=== PATIENT | male | born 1950 | race Caucasian/White ===

== ENCOUNTER 2018-12-09 23:25 | Emergency (ER) | payer MEDICARE ==
--- NOTE | 2018-12-09 23:36 | ED ---
General Adult HPI - General Stated complaint: Cardiac Arrest Time Seen by Provider: 12/09/18 23:30 - History of Present Illness Initial comments: Dictation was produced using [employer] dictation software. please excuse any grammatical, word or spelling errors. Chief Complaint: 67-year-old male presents with cardiac arrest. History of Present Illness: [age]old male brought in by EMS for cardiac arrest. According to EMS approximately 4045 minutes prior to arrival patient had collapsed. CPR was started by friends/family. EMS was called patient to call for patient's care. The were performing CPR for 40 minutes. Patient was identified to be in V. fib arrest. Patient was shocked 7 times. He is given multiple medications including several rounds of epinephrine, amiodarone and sodium bicarbonate. At no point during resuscitation performed by EMS did patient have any return of spontaneous circulation. EMS reports that patient does have cardiac history. She had Flakito tube placed for airway management. He requested report that patient became cyanotic throughout the CPR process. Unable to obtain secondary to medical status PHYSICAL EXAM: General Impression: Abdominal cyanotic, easy to bag, unresponsive HEENT: Normocephalic atraumatic, fixed dilated pupils Chest: Bilateral breath sounds with bagging Abdomen: non-distended Musculoskeletal: no peripheral edema Skin: Cyanotic ED course: 67-year-old male presents after cardiac arrest. Patient care was taken over by EMS. Patient was continued on the Chris device. Monitor was applied and patient continued to be in ventricular fibrillation arrest. When CPR for a proximally 40 minutes. He did have signs of brain with fixed dilated pupils. Given the patient had multiple rounds of epinephrine and patient has refractory ventricular fibrillation arrest patient trialed on dual defibrillation. Patient had dual defibrillation twice with no return of spontaneous circulation. Patient was also given beta alonzo as a heroic maneuver. Patient is continued on CPR with no return of spontaneous circulation. Time of was reported. Review of Systems ROS Statement: Those systems with pertinent positive or pertinent negative responses have been documented in the HPI. ROS Other: All systems not noted in ROS Statement are negative. Critical Care Time Critical Care Time: Yes Total Critical Care Time: 31 Disposition Clinical Impression: Cardiac arrest, Ventricular fibrillation Disposition: Referrals: None,Stated [Primary Care Provider] - 1-2 days Time of Disposition: 23:36 Preliminary Cause of : cardiac arrest
== END 2018-12-10 02:43 | disposition expired ==
LOC: EC 23:25
DX: I46.9 Cardiac arrest, cause unspecified (principal); I49.01 Ventricular fibrillation
CPT/HCPCS: 92950; 99291